=== PATIENT | female | born 1940 | race Caucasian/White ===

== ENCOUNTER 2017-07-27 08:50 | Day surgery (SDC) | payer MEDICARE, BC ==
[~2017-07-27 08:50] MED LIST: BUPIVACAINE HCL 0.75% INJ/PF (7.5 MG/1 ML) 10 ML SDV OD PRN; CHONDR SU A NA/HYALUR INTRAOC KIT (SURGICARE) ONE; KETOROLAC TROMETHAMINE 0.45% 4 DROP/0.4 ML DROPERETTE OD PRN; LIDOCAINE 1% INJ-PF (10 MG/ML) 30 ML SDV ONE; LIDOCAINE 4% INJ/PF (40 MG/ML) 5 ML AMPUL OD PRN; MIDAZOLAM 2 MG/2 ML INJ ONE; PHENYLEPHRINE/KETOROLAC 1%-0.3% 4 ML VIAL ONE
[2017-07-27] MEDS: TETRACAINE HCL 0.5% OPH SOLN 0.6 ML DROPERETTE OD PRN ×2 (09:14→09:42)
[2017-07-27] MEDS: BESIFLOXACIN HCL 0.6% OPH SUSP 5 ML BOTTLE OD PRN ×3 (09:15→10:48)
[2017-07-27] MEDS: TROPICAMIDE 1% OPH SOLN 3 ML OD PRN ×3 (09:15→09:40)
[2017-07-27] MEDS: CYCLOPENTOLATE 0.2%/PHENYLEPHRINE 1% OPH SOLN 2 ML OD PRN ×3 (09:15→09:40)
[2017-07-27] MEDS ORDERED: MIDAZOLAM 2 MG/2 ML INJ ONE (09:31)
[2017-07-27] MEDS ORDERED: FENTANYL CITRATE INJ/PF 100 MCG/2 ML AMPUL ONE (09:31)
--- NOTE | 2017-07-27 13:08 | [facility] OPERATIVE REPORT E ---
[facility] Operative Report NAME: CYNTHIA FARRAR AGE: 77Y DATE OF SURGERY: 07/27/2017 ROOM: PREOPERATIVE DIAGNOSES: 1. Cataract, right eye. 2. Glaucoma, right eye. POSTOPERATIVE DIAGNOSES: 1. Cataract, right eye. 2. Glaucoma, right eye. PROCEDURES PERFORMED: 1. Phacoemulsification with posterior chamber intraocular lens, right eye. 2. Insertion of iStent, right eye. SURGEON: MARK ARAIZA M.D. ANESTHESIA: Topical with MAC. DESCRIPTION OF PROCEDURE: The patient was brought to the operating room and topical anesthesia was administered. This consisted of instrument wipe pledgets soaked in a solution of 4% Xylocaine mixed with 0.75% Marcaine in a 1:1 ratio. A 2 x 1 cm pledget was placed in the superior fornix. A 1 x 1 cm pledget was placed in the inferior fornix. The eye was patched shut for 5 minutes. The patch and pledgets were removed. The eye was sterilely prepped and draped in the usual manner. Lid speculum was placed in the eye. The 4-0 black silk sutures were placed around the superior and the inferior rectus muscles to be used as traction. A sideport incision was placed at the 12 o'clock position and 0.3 mL of 1% non-preserved lidocaine was injected into the eye. A 2.4 mm keratome was used to create a clear corneal incision temporally. Additional intraocular lidocaine was placed. Viscoelastic was placed in the eye. An anterior capsulotomy was performed using the Utrata forceps in a capsulorhexis fashion. Hydrodissection was hydrodelineation were performed. Phacoemulsification was performed in udqzve-yzo-oseanbw technique. A total of 33 seconds of total phaco time was used. Following this, the I/A unit was used to remove residual cortex. Viscoelastic was injected into the capsular bag. Intraocular lens Model SN60WF, 22.5 diopters, serial number [id number] was placed in the capsular bag. The microscope was rotated 30 degrees as well as the patient's head was rotated 30 degrees away from the surgeon. A gonioprism was placed in the eye and the trabecular meshwork was visualized nasally. The iStent was opened and the iStent was placed uneventfully in the nasal trabecular meshwork. There was small amount of heme on placement of the iStent. The head was repositioned and the I/A unit was used to remove residual viscoelastic. The wound was seen to be watertight under high and low pressure, and no sutures were placed. The 4-0 black silk sutures and lid speculum were removed. The eye was shielded after Besivance drops were placed. The patient tolerated the procedure well and was sent to the recovery room in good condition. DICTATING PHYSICIAN: MARK ARAIZA M.D. [id number] PHY#: [id number] ID: [id number] JOB#: [id number] ACCT: [id number] cc:MARK ARAIZA M.D. >
--- NOTE | 2017-07-27 13:13 | [facility] DISCHARGE SUMMARY E ---
[facility] Discharge Summary NAME: CYNTHIA FARRAR AGE: 77Y ADMITTED: 07/27/2017 DISCHARGED: 07/27/2017 HOSPITAL COURSE: The patient is a 77-year-old lady who underwent cataract extraction with intraocular lens implant and insertion of iStent, right eye on 07/27/2017. She will be discharged to home. She was instructed to resume preoperative medications, including her glaucoma drops, to keep her eye shielded, to use Besivance, Durezol and Ilevro at 3:00 p.m. and 8:00 p.m., and to follow up in my office in 1 day. DICTATING PHYSICIAN: MARK ARAIZA M.D. [id number] PHY#: [id number] ID: [id number] JOB#: [id number] ACCT: [id number] cc:MARK ARAIZA M.D. >
== END 2017-07-27 11:50 | disposition home or self-care (01) ==
LOC: SC 08:50
PROVIDERS: ATTEND Ophthalmology
PROC: 089230Z Drainage of Right Anterior Chamber with Drainage Device, Percutaneous Approach (ICD-10-PCS; 2017-07-27)
PROC: 08RJ3JZ Replacement of Right Lens with Synthetic Substitute, Percutaneous Approach (ICD-10-PCS; principal; 2017-07-27 10:00)
DX: H25.813 Combined forms of age-related cataract, bilateral (principal); H40.1231 Low-tension glaucoma, bilateral, mild stage; M19.90 Unspecified osteoarthritis, unspecified site; Z88.2 Allergy status to sulfonamides; Z88.5 Allergy status to narcotic agent; Z79.899 Other long term (current) drug therapy
CPT/HCPCS: 0191T; 66984; 142; C1783; C9447; J2250; J3010; J3490; V2632

== ENCOUNTER 2017-08-24 10:29 | Day surgery (SDC) | payer MEDICARE, BC ==
[~2017-08-24 10:29] MED LIST changes: -BUPIVACAINE HCL 0.75% INJ/PF (7.5 MG/1 ML) 10 ML SDV OD PRN; +BUPIVACAINE HCL 0.75% INJ/PF (7.5 MG/1 ML) 10 ML SDV OS PRN; -KETOROLAC TROMETHAMINE 0.45% 4 DROP/0.4 ML DROPERETTE OD PRN; +KETOROLAC TROMETHAMINE 0.45% 4 DROP/0.4 ML DROPERETTE OS PRN; -LIDOCAINE 4% INJ/PF (40 MG/ML) 5 ML AMPUL OD PRN; +LIDOCAINE 4% INJ/PF (40 MG/ML) 5 ML AMPUL OS PRN; -MIDAZOLAM 2 MG/2 ML INJ ONE
[2017-08-24] MEDS: TROPICAMIDE 1% OPH SOLN 3 ML OS PRN ×3 (10:40→11:11)
[2017-08-24] MEDS: CYCLOPENTOLATE 0.2%/PHENYLEPHRINE 1% OPH SOLN 2 ML OS PRN ×3 (10:40→11:11)
[2017-08-24] MEDS: BESIFLOXACIN HCL 0.6% OPH SUSP 5 ML BOTTLE OS PRN ×3 (10:41→11:53)
[2017-08-24] MEDS: TETRACAINE HCL 0.5% OPH SOLN 0.6 ML DROPERETTE OS PRN ×2 (10:42→11:12)
[2017-08-24] MEDS ORDERED: MIDAZOLAM 2 MG/2 ML INJ ONE ×2 (10:44)
[2017-08-24] MEDS ORDERED: ONDANSETRON HCL INJ/PF 4 MG/2 ML SDV ONE (10:58)
[2017-08-24] MEDS ORDERED: HYALURONATE SODIUM SYRINGE 0.55 ML ONE (11:03)
[2017-08-24] MEDS ORDERED: KETOROLAC TROMETHAMINE 0.45% 4 DROP/0.4 ML DROPERETTE OS ONE (12:04)
--- NOTE | 2017-08-24 12:13 | [facility] DISCHARGE SUMMARY E ---
[facility] Discharge Summary NAME: CYNTHIA FARRAR AGE: 77Y ADMITTED: 08/24/2017 DISCHARGED: 08/24/2017 FINAL DIAGNOSIS: Cataract, left eye. HOSPITAL COURSE: The patient is a 77-year-old lady who underwent uneventful cataract extraction with intraocular lens implant, left eye, on 08/24/2017. She will be discharged to home. She was instructed to resume preoperative medications, to take Tylenol as needed for discomfort, to keep her eye shielded, to use Durezol, Ketorolac and Vigamox at 3 p.m. and 8 p.m., and to follow up in my office in 1 day. DICTATING PHYSICIAN: MARK ARAIZA M.D. [id number] PHY#: [id number] ID: [id number] JOB#: [id number] ACCT: [id number] cc:MARK ARAIZA M.D. >
--- NOTE | 2017-08-24 12:13 | [facility] OPERATIVE REPORT E ---
[facility] Operative Report NAME: CYNTHIA FARRAR AGE: 77Y DATE OF SURGERY: 08/24/2017 ROOM: PREOPERATIVE DIAGNOSIS: Cataract, left eye. POSTOPERATIVE DIAGNOSIS: Cataract, left eye. PROCEDURE PERFORMED: Phacoemulsification with posterior chamber intraocular lens implant, left eye. SURGEON: MARK ARAIZA M.D. ANESTHESIA: Topical with MAC. INDICATIONS FOR SURGERY: Anisotropy following cataract surgery in the right eye. Glare with driving. Best corrected visual acuity 20/25. PROCEDURE: The patient was brought to the operating room and topical anesthesia was administered. This consisted of instrument wipe pledgets soaked in a solution of 2% Xylocaine mixed with 0.75% Marcaine in a 1:1 ratio. A 2 x 1 cm pledget was placed in the superior fornix. A 1 x 1 cm pledget was placed in the inferior fornix. The eye was patched shut for 5 minutes. The patch and pledget were removed. The eye was sterilely prepped and draped in the usual manner. Lid speculum was placed in the eye and 4-0 black silk sutures were placed around the superior and the inferior rectus muscles to be used as traction. A sharp point blade was used to create a paracentesis site at the 6 o'clock position. A 2.4 mm keratome was used to create a clear corneal incision temporally. Then, 0.5 mL of nonpreserved lidocaine were injected into the eye. Viscoelastic was injected into the eye. An anterior capsulotomy was performed using Utrata forceps in a capsulorrhexis fashion. Hydrodissection and hydrodelineation were performed. Phacoemulsification was performed in a xupzox-jov-jhirmrt technique. A total of 43 seconds total phaco time was used. Following this, the I/A unit was used to remove residual cortex. Viscoelastic was injected into the capsular bag. Intraocular lens model SN60WF, 22.0 diopters, serial number [id number], was injected into the capsular bag. Additional Provisc was placed and an attempt for preparation of possible iStent. The patient had a very small lid fissure and despite maximizing the lid speculum the gonioprism did not fit easily on the eye; therefore, it was decided not to place the iStent. The I/A unit was used to remove residual viscoelastic. The wound was seen to be watertight under high and low pressure, and no sutures were placed. The 4-0 black silk sutures and lid speculum were removed. The eye was shielded after Besivance drops were placed. The patient tolerated the procedure well and was sent to recovery room in good condition. DICTATING PHYSICIAN: MARK ARAIZA M.D. [id number] PHY#: [id number] ID: [id number] JOB#: [id number] ACCT: [id number] cc:MARK ARAIZA M.D. >
== END 2017-08-24 13:00 | disposition home or self-care (01) ==
LOC: SC 10:29
PROVIDERS: ATTEND Ophthalmology
PROC: 08RK3JZ Replacement of Left Lens with Synthetic Substitute, Percutaneous Approach (ICD-10-PCS; principal; 2017-08-24 11:30)
DX: H25.812 Combined forms of age-related cataract, left eye (principal); H40.1231 Low-tension glaucoma, bilateral, mild stage; Z96.1 Presence of intraocular lens; K21.9 Gastro-esophageal reflux disease without esophagitis; Z79.899 Other long term (current) drug therapy; Z88.5 Allergy status to narcotic agent; Z88.2 Allergy status to sulfonamides
CPT/HCPCS: 66984; V2632; J2250; J3490 ×4; A9270; J2405; C9447; 142

== ENCOUNTER 2018-01-19 10:59 | Day surgery (SDC) | payer MEDICARE, BC ==
[2018-01-14 11:37] LABS: ABSOLUTE BASOPHILS # (AUTO) 0.1 10^3/uL (0.0-0.2); ABSOLUTE EOSINOPHILS # (AUTO) 0.3 10^3/uL (0.0-0.6); ABSOLUTE MONOCYTES (AUTO) 0.6 10^3/uL (0.1-1.4); BASOPHILS % (AUTO) 1.2 % (0-2); EOSINOPHILS % (AUTO) 4.3 % (0-6); HEMATOCRIT 36.7 % (36.0-47.0); HEMOGLOBIN 12.4 g/dL (12.0-15.5); LYMPHOCYTES % (AUTO) 42.8 % (13-45); MEAN CORPUSCULAR HEMOGLOBIN 31.6 pg (27.0-33.4); MEAN CORPUSCULAR HGB CONC 33.7 g/dL (32.0-36.0); MEAN CORPUSCULAR VOLUME 94 fl (80-97); MONOCYTES % (AUTO) 8.8 % (3-13); PLATELET COUNT 240 10^3/uL (150-450); RED BLOOD COUNT 3.91 10^6/uL (3.72-5.28); RED CELL DISTRIBUTION WIDTH 13.4 % (11.5-14.0); SEGMENTED NEUTROPHILS % (AUTO) 42.9 % (42-78); TOTAL CELLS COUNTED % (AUTO) 100 %; WHITE BLOOD COUNT 6.9 10^3/uL (4.0-10.5)
[2018-01-14 11:39] LABS: APPEARANCE,URINE CLEAR; BILIRUBIN,URINE NEGATIVE (NEGATIVE); COLOR,URINE YELLOW; GLUCOSE, URINE NEGATIVE (NEGATIVE); KETONES,URINE NEGATIVE (NEGATIVE); LEUKOCYTE ESTERASE,URINE SMALL (NEGATIVE); NITRITE,URINE NEGATIVE (NEGATIVE); PROTEIN,URINE NEGATIVE (NEGATIVE); URINE SPECIFIC GRAVITY 1.009; UROBILINOGEN,URINE NEGATIVE mg/dL (<2.0)
[2018-01-14 11:40] LABS: INTERNATIONAL RATION (INR) 0.92; PROTHROMBIN TIME 12.8 SEC (11.4-15.4)
[2018-01-14 11:41] LABS: PARTIAL THROMBOPLASTIN TIME 28.6 SEC (23.5-35.8)
[2018-01-14 11:59] LABS: ANION GAP 15 (5-19); BLOOD UREA NITROGEN 17 mg/dL (7-20); CALCIUM 9.8 mg/dL (8.4-10.2); CARBON DIOXIDE 26 mmol/L (22-30); CHLORIDE 103 mmol/L (98-107); GLUCOSE 90 mg/dL (75-110); POTASSIUM 4.7 mmol/L (3.6-5.0); SODIUM 143.9 mmol/L (137-145)
--- NOTE | 2018-01-14 21:15 | EKG REPORT ---
SEVERITY:- ABNORMAL ECG - SINUS RHYTHM ABNORMAL T, CONSIDER ISCHEMIA, INFERIOR LEADS : Confirmed by: Jackie Vidal 14-Jan-2018 21:14:14
[~2018-01-19 10:59] MED LIST changes: -BUPIVACAINE HCL 0.75% INJ/PF (7.5 MG/1 ML) 10 ML SDV OS PRN; +CEFAZOLIN 1 GM/D5W RTU 1 GM/50 ML RTUPB IV PRN; -CHONDR SU A NA/HYALUR INTRAOC KIT (SURGICARE) ONE; -KETOROLAC TROMETHAMINE 0.45% 4 DROP/0.4 ML DROPERETTE OS PRN; +LACTATED RINGERS 1000 ML IV PRN; +LIDOCAINE 0.5% INJ-PF (5 MG/ML) 50 ML SDV SUBCUT PRN; -LIDOCAINE 1% INJ-PF (10 MG/ML) 30 ML SDV ONE; -LIDOCAINE 4% INJ/PF (40 MG/ML) 5 ML AMPUL OS PRN; -PHENYLEPHRINE/KETOROLAC 1%-0.3% 4 ML VIAL ONE
[2018-01-19] MEDS ORDERED: MIDAZOLAM 2 MG/2 ML INJ ONE (12:00)
[2018-01-19] MEDS ORDERED: FENTANYL CITRATE INJ/PF 100 MCG/2 ML AMPUL ONE (12:00)
[2018-01-19] MEDS ORDERED: PROPOFOL INJ 200 MG/20 ML VIAL IV ONE (12:01)
[2018-01-19] MEDS ORDERED: LIDOCAINE 1% INJ-PF (10 MG/ML) 30 ML SDV ONE (12:35)
[2018-01-19] MEDS ORDERED: BUPIVACAINE HCL 0.25% /EPINEPHRINE INJ/PF 30 ML SDV ONE (12:36)
[2018-01-19] MEDS ORDERED: PROMETHAZINE HCL INJ 25 MG/1 ML VIAL IV PRN ×2 (13:16)
[2018-01-19] MEDS ORDERED: MEPERIDINE HCL/PF INJ 25 MG/1 ML DISP.SYRIN IV PRN (13:16)
[2018-01-19] MEDS ORDERED: OXYCODONE-ACETAMINOPHEN 5-325 MG TABLET PO PRN ×2 (13:16)
[2018-01-19] MEDS ORDERED: FENTANYL CITRATE INJ/PF 100 MCG/2 ML AMPUL IV PRN ×3 (13:16)
[2018-01-19] MEDS ORDERED: DIPHENHYDRAMINE HCL 50 MG/ML VIAL IV PRN (13:16)
[2018-01-19] MEDS ORDERED: CEFAZOLIN INJ 1 GM VIAL ONE (14:34)
[2018-01-19] MEDS ORDERED: HYDROCODONE/ACETAMINOPHEN 10-325 MG TABLET PO PRN (15:00)
--- NOTE | 2018-01-19 16:04 | RADIOLOGY REPORT (SQ) ---
EXAM DESCRIPTION: NO CHG FLUORO; L SPINE 2 VIEWS COMPLETED DATE/TIME: 01/19/2018 3:03 pm REASON FOR STUDY: MINIMALLY INVASIVE LUMBAR DISKECTOMY ASST WITH FLUORO IN OR M48.062 SPINAL STENOS IS, LUMBAR REGION WITH NEUROGENIC KATHY Z79.01 RETIREMENT (CURRENT) USE OF ANTICOAGULANTS COMPARISON: None. FLUOROSCOPY TIME: 9.5 minutes 13 Images saved to PACS. TECHNIQUE: Intra-operative images acquired during surgical procedure to evaluate progress. NUMBER OF IMAGES: 13 LIMITATIONS: None. FINDINGS: Selected images from instrumentation in the upper lumbar spine. Epidural and intrathecal contrast. IMPRESSION: IMAGE(S) OBTAINED DURING PROCEDURE. COMMENT: Quality ID 145: Final reports for procedures using fluoroscopy that document radiation exp osure indices, or exposure time and number of fluorographic images (if radiation exposure indices are not available) Please consult full operative report of the attending physician for description of the procedure. TECHNICAL DOCUMENTATION: JOB ID: [id number] [employer]- All Rights Reserved Reading location - IP/workstation name: [email or web address]
--- NOTE | 2018-01-19 16:04 | RADIOLOGY REPORT (SQ) ---
EXAM DESCRIPTION: NO CHG FLUORO; L SPINE 2 VIEWS COMPLETED DATE/TIME: 01/19/2018 3:03 pm REASON FOR STUDY: MINIMALLY INVASIVE LUMBAR DISKECTOMY ASST WITH FLUORO IN OR M48.062 SPINAL STENOS IS, LUMBAR REGION WITH NEUROGENIC KATHY Z79.01 CORRECTION (CURRENT) USE OF ANTICOAGULANTS COMPARISON: None. FLUOROSCOPY TIME: 9.5 minutes 13 Images saved to PACS. TECHNIQUE: Intra-operative images acquired during surgical procedure to evaluate progress. NUMBER OF IMAGES: 13 LIMITATIONS: None. FINDINGS: Selected images from instrumentation in the upper lumbar spine. Epidural and intrathecal contrast. IMPRESSION: IMAGE(S) OBTAINED DURING PROCEDURE. COMMENT: Quality ID 145: Final reports for procedures using fluoroscopy that document radiation exp osure indices, or exposure time and number of fluorographic images (if radiation exposure indices are not available) Please consult full operative report of the attending physician for description of the procedure. TECHNICAL DOCUMENTATION: JOB ID: [id number] [employer]- All Rights Reserved Reading location - IP/workstation name: [email or web address]
[2018-01-19 16:53] VITALS: BP 159/76
--- NOTE | 2018-01-20 10:47 | OPERATIVE REPORT E ---
Operative Report NAME: CYNTHIA FARRAR : 1940 AGE: 77Y DATE OF SURGERY: ROOM: PREOPERATIVE DIAGNOSIS: LUMBAR SPINAL STENOSIS WITH NEUROGENIC CLAUDICATION. POSTOPERATIVE DIAGNOSIS: LUMBAR SPINAL STENOSIS WITH NEUROGENIC CLAUDICATION. OPERATION: Minimally invasive lumbar decompression L2-L3 with epidural controlled steroid injection. SURGEON: JUDY ALEJANDRE M.D. CRM DEVELOPER: Dr. Antonio Ratliff ANESTHESIA: MAC. COMPLICATIONS: None. PROCEDURE: After obtaining informed consent, advising the patient of the risks and benefits including serious neurological injury, bleeding, infection, paralysis, aggravation of pain, infection, , allergic reaction, she was taken to the operating room and placed comfortably in the prone position. Monitors were applied per Anesthesia. She was assessed visually and verbally for comfort. She was then prepped with chlorhexidine followed by a sterile drape. Fluoroscopy was used to evaluate the spine along with a prior MRI imaging from 06/16/2017 at [facility], with a known spinal stenosis at L2-L3. The L2-L3 target space was identified. Using an epidural needle and intermittent fluoroscopy, the needle was advanced to the target epidural space. An epidurogram was performed after loss of resistance at 6 cm with appropriate contrast spread and minimal inferior migration. The landmarks were identified and suitable track was determined for placement of the MILD instrumentation. Beginning on the left side, a small incision was made after local anesthesia of 1% lidocaine was applied. This was repeated on the right side at the suspected entry level marketing representative. The MILD instrumentation trocar was then advanced through the small incision down to the lamina of the L2-L3 level on the left. Multiple x-ray views were taken particularly oblique and AP to ensure satisfactory location in the midline and depth. A small amount of additional local anesthetic was instilled through the trocar using a spinal needle. A bone rongeur was then utilized from the lamina and ligament at the level on the left in the superior inferior regions. A tissue sculptor was utilized to remove additional tissue. Improvement with the contrast spread was noted with improved migration. The procedure was then repeated on the right side as described. Again, additional improvement in the was noted. There was felt to be satisfactory opening of the epidural space at the L2 level resolving some of the spinal stenosis. Through the epidural needle, 80 mg of Kenalog was then inserted and injected. All instrumentation was then removed. The region was cleansed, Steri-Strips were placed followed by sterile dressings. The patient was then taken to the PACU for further postoperative care and monitoring. DICTATING PHYSICIAN: JUDY ALEJANDRE M.D. [id number] PHY#: [id number] ID: [id number] JOB#: [id number] ACCT: [id number] cc:JUDY ALEJANDRE M.D. >
== END 2018-01-19 16:20 | disposition home or self-care (01) ==
LOC: OROUT 10:59
PROVIDERS: ATTEND Student in an Organized Health Care Education/Training Program
DX: M48.062 Spinal stenosis, lumbar region with neurogenic claudication (principal); M96.1 Postlaminectomy syndrome, not elsewhere classified; M51.36 Other intervertebral disc degeneration, lumbar region; M54.16 Radiculopathy, lumbar region; G89.4 Chronic pain syndrome; J45.909 Unspecified asthma, uncomplicated; M19.90 Unspecified osteoarthritis, unspecified site; Z79.01 Long term (current) use of anticoagulants; Z79.899 Other long term (current) drug therapy; Z79.82 Long term (current) use of aspirin; Z87.891 Personal history of nicotine dependence; Z88.2 Allergy status to sulfonamides; Z79.891 Long term (current) use of opiate analgesic; Z00.6 Encounter for examination for normal comparison and control in clinical research program
CPT/HCPCS: 0275T; 93005; 36415; 85025; 85610; 85730; 80048; 81001; 72100; 93010; Q9966; J2250; J3490 ×2; J0690 ×2; J3010; J2704; 630

== ENCOUNTER 2018-04-04 11:21 | Emergency (ER) | payer MEDICARE, BC ==
[2018-04-04] MEDS ORDERED: NORMAL SALINE 1000 ML 1,000 ML IV ONE (11:34)
--- NOTE | 2018-04-04 11:44 | ER Document Report ---
ED General - General Chief Complaint: Syncope Stated Complaint: SYNCOPE Time Seen by Provider: 04/04/18 11:33 Mode of Arrival: Medic Information source: Patient, Relative, Emergency Med Personnel Notes: 78-year-old female presents with complaints of sudden weakness. Patient denies any fever chills denies any chest pain shortness breath difficulty breathing. Patient notes that for the past month she has been dieting eating 600 damari in 1 week then 112 100, she just started eating regular food again, patient notes she did this because she wanted to lose weight, patient also notes that yesterday she was outdoors because it was beautiful out and she thinks she overdid it. EMS noted patient was quite hypotensive upon arrival blood pressure was 70s over 40s patient was given 500 cc bolus and notes symptoms have improved significantly. Patient notes a history of spinal stenosis intermittent paresthesias of extremities and states that this is chronic and had recent surgery 2 months ago denies any weakness outside of her baseline TRAVEL OUTSIDE OF THE [place] IN LAST 30 DAYS: No - HPI Onset: Just prior to arrival Onset/Duration: Sudden Quality of pain: No pain Severity: Mild Pain Level: Denies Associated symptoms: Weakness Exacerbated by: Denies Relieved by: Other - iv fluids Similar symptoms previously: No Recently seen / treated by doctor: No - Related Data Allergies/Adverse Reactions: morphine Allergy (Verified 01/19/18 12:21) Disorientation Sulfa (Sulfonamide Antibiotics) Allergy (Verified 01/19/18 12:21) Generalized rash Past Medical History - Social History Smoking Status: Never Smoker Cigarette use (# per day): No Chew tobacco use (# tins/day): No Smoking Education Provided: No Frequency of alcohol use: None Drug Abuse: None Family History: Reviewed & Not Pertinent Patient has suicidal ideation: No Patient has homicidal ideation: No - Past Medical History Cardiac Medical History: Reports: Hx Hypertension - ON MEDICATION Denies: Hx Coronary Artery Disease, Hx Heart Attack Pulmonary Medical History: Denies: Hx Asthma - HYPERVENTILATE EASILY WITH ANXIETY 6 MONTHS AGO, Hx Bronchitis, Hx COPD, Hx Pneumonia Neurological Medical History: Denies: Hx Cerebrovascular Accident, Hx Seizures Renal/ Medical History: Denies: Hx Peritoneal Dialysis GI Medical History: Reports: Hx Ulcer - 50 YEARS AGO. Denies: Hx Hepatitis, Hx Hiatal Hernia Musculoskeltal Medical History: Reports Hx Arthritis Infectious Medical History: Denies: Hx Hepatitis Past Surgical History: Reports: Hx Genitourinary Surgery - bladder x3., Hx Hysterectomy, Hx Orthopedic Surgery - Lumbar spinal decompression surgery. Denies: Hx Mastectomy, Hx Open Heart Surgery, Hx Pacemaker - Immunizations Hx Diphtheria, Pertussis, Tetanus Vaccination: Yes Hx Pneumococcal Vaccination: 09/27/16 Review of Systems - Review of Systems Notes: REVIEW OF SYSTEMS: CONSTITUTIONAL : Denies fever, chills, or sweats. Denies recent illness. EENT: Denies eye, ear, throat, or mouth pain or symptoms. Denies nasal or sinus congestion or discharge. Denies throat, tongue, or mouth swelling or difficulty swallowing. CARDIOVASCULAR: Denies chest pain. Denies palpitations or racing or irregular heart beat. Denies ankle edema. RESPIRATORY: Denies cough, cold, or chest congestion. Denies shortness of breath, difficulty breathing, or wheezing. GASTROINTESTINAL: Denies abdominal pain or distention. Denies nausea, vomiting , or diarrhea. Denies blood in vomitus, stools, or per rectum. Denies black, tarry stools. Denies constipation. GENITOURINARY: Denies difficulty urinating, painful urination, burning, frequency, blood in urine, or discharge. FEMALE GENITOURINARY: Denies vaginal bleeding, heavy or abnormal periods, irregular periods. Denies vaginal discharge or odor. MUSCULOSKELETAL: Denies back or neck pain or stiffness. Denies joint pain or swelling. SKIN: Denies rash, lesions or sores. HEMATOLOGIC : Denies easy bruising or bleeding. LYMPHATIC: Denies swollen, enlarged glands. NEUROLOGICAL: Admits to lower extremity weakness PSYCHIATRIC: Denies anxiety or stress. Denies depression, suicidal ideation, or homicidal ideation. ALL OTHER SYSTEMS REVIEWED AND NEGATIVE. PHYSICAL EXAMINATION: GENERAL: Well-appearing, well-nourished and in no acute distress. HEAD: Atraumatic, normocephalic. EYES: Pupils equal round and reactive to light, extraocular movements intact, conjunctiva are normal. ENT: Nares patent, oropharynx clear without exudates. Moist mucous membranes. NECK: Normal range of motion, supple without lymphadenopathy LUNGS: Breath sounds clear to auscultation bilaterally and equal. No wheezes rales or rhonchi. HEART: Regular rate and rhythm without murmurs ABDOMEN: Soft, nontender, nondistended abdomen. No guarding, no rebound. No masses appreciated. Female : deferred Musculoskeletal: Normal range of motion, no pitting or edema. No cyanosis. NEUROLOGICAL: Cranial nerves grossly intact. Normal speech, normal gait. Normal sensory, motor exams PSYCH: Normal mood, normal affect. SKIN: Warm, Dry, normal turgor, no rashes or lesions noted. Dictation was performed using [employer] voice recognition software Physical Exam - Vital signs Vitals: Resp Pulse Ox 10 L 77 L 04/04/18 11:30 04/04/18 11:30 Course - Re-evaluation Re-evalutation: 04/04/18 11:58 Patient notes improvement of symptoms after 500 cc bolus, her blood pressures improved significantly, she overall appears to have been dehydrated I do not expect any life-threatening issues however lab work is pending 04/04/18 13:17 Patient's presentation has improved, lab work was benign she is overall stable for discharge After performing a Medical Screening Examination, I estimate there is LOW risk for INTRACRANIAL HEMORRHAGE, ISCHEMIC CVA, MALIGNANT DYSRHYTHMIA, ACUTE CORONARY SYNDROME, MENINGITIS, PULMONARY EMBOLISM, or SEPSIS thus I consider the discharge disposition reasonable. I have reevaluated this patient multiple times and no significant life threatening changes are noted. The patient and I have discussed the diagnosis and risks, and we agree with discharging home with close follow-up with the understanding that symptoms and presentations can change. We also discussed returning to the Emergency Department immediately if new or worsening symptoms occur. We have discussed the symptoms which are most concerning (e.g., changing or worsening pain, weakness, vomiting, fever) that necessitate immediate return. - Vital Signs Vital signs: Temp Pulse Resp BP Pulse Ox 68 29 H 108/87 H 94 04/04/18 11:48 04/04/18 12:01 04/04/18 12:01 04/04/18 12:01 - Laboratory Result Diagrams: 04/04/18 11:02 04/04/18 11:02 Laboratory results interpreted by me: 04/04/18 04/04/18 11:02 11:02 RBC 3.67 L Hgb 11.9 L Hct 34.2 L Seg Neutrophils % 40.8 L Eosinophils % 6.4 H Chloride 108 H AST 41 H Discharge - Discharge Clinical Impression: Leg weakness, bilateral Hypotension Qualifiers: Hypotension type: unspecified hypotension type Qualified Code(s): I95.9 - Hypotension, unspecified Condition: Stable Disposition: HOME, SELF-CARE Instructions: Hypotension ([facility]) Referrals: INNA DOWNEY FNP [Primary Care Provider] - Follow up tomorrow
[2018-04-04 12:13] LABS: ABSOLUTE BASOPHILS # (AUTO) 0.1 10^3/uL (0.0-0.2); ABSOLUTE EOSINOPHILS # (AUTO) 0.5 10^3/uL (0.0-0.6); ABSOLUTE LYMPHOCYTES (AUTO) 3.3 10^3/uL (0.5-4.7); ABSOLUTE MONOCYTES (AUTO) 0.7 10^3/uL (0.1-1.4); ABSOLUTE NEUT (AUTO) 3.2 10^3/uL (1.7-8.2); BASOPHILS % (AUTO) 1.3 % (0-2); EOSINOPHILS % (AUTO) 6.4 % (0-6); HEMATOCRIT 34.2 % (36.0-47.0); HEMOGLOBIN 11.9 g/dL (12.0-15.5); LYMPHOCYTES % (AUTO) 42.1 % (13-45); MEAN CORPUSCULAR HEMOGLOBIN 32.3 pg (27.0-33.4); MEAN CORPUSCULAR HGB CONC 34.7 g/dL (32.0-36.0); MEAN CORPUSCULAR VOLUME 93 fl (80-97); MONOCYTES % (AUTO) 9.4 % (3-13); PLATELET COUNT 223 10^3/uL (150-450); RED BLOOD COUNT 3.67 10^6/uL (3.72-5.28); RED CELL DISTRIBUTION WIDTH 13.6 % (11.5-14.0); SEGMENTED NEUTROPHILS % (AUTO) 40.8 % (42-78); TOTAL CELLS COUNTED % (AUTO) 100 %; WHITE BLOOD COUNT 7.8 10^3/uL (4.0-10.5)
[2018-04-04 12:16] LABS: ALANINE AMINOTRANSFERASE 26 U/L (9-52); ALBUMIN 3.6 g/dL (3.5-5.0); ALKALINE PHOSPHATASE 40 U/L (38-126); ANION GAP 10 (5-19); ASPARTATE AMINO TRANSFERASE 41 U/L (14-36); BILIRUBIN,DIRECT 0.3 mg/dL (0.0-0.4); BILIRUBIN,TOTAL 0.7 mg/dL (0.2-1.3); BLOOD UREA NITROGEN 20 mg/dL (7-20); CALCIUM 8.5 mg/dL (8.4-10.2); CARBON DIOXIDE 24 mmol/L (22-30); CHLORIDE 108 mmol/L (98-107); CREATINE KINASE 64 U/L (30-135); GLUCOSE 85 mg/dL (75-110); POTASSIUM 4.4 mmol/L (3.6-5.0); SODIUM 142.3 mmol/L (137-145); TOTAL PROTEIN 6.4 g/dL (6.3-8.2)
[2018-04-04 12:28] LABS: CREATINE KINASE MB < 0.22 ng/mL (<4.55); TROPONIN I < 0.012 ng/mL
[2018-04-04 13:07] LABS: APPEARANCE,URINE SLIGHTLY-CLOUDY; BILIRUBIN,URINE NEGATIVE (NEGATIVE); COLOR,URINE YELLOW; GLUCOSE, URINE NEGATIVE (NEGATIVE); KETONES,URINE NEGATIVE (NEGATIVE); LEUKOCYTE ESTERASE,URINE NEGATIVE (NEGATIVE); NITRITE,URINE NEGATIVE (NEGATIVE); PROTEIN,URINE NEGATIVE (NEGATIVE); URINE SPECIFIC GRAVITY 1.011; UROBILINOGEN,URINE NEGATIVE mg/dL (<2.0)
[2018-04-04 13:31] VITALS: BP 125/85
--- NOTE | 2018-04-04 20:20 | EKG REPORT ---
SEVERITY:- NORMAL ECG - SINUS RHYTHM : Confirmed by: Dana Raza MD 04-Apr-2018 20:20:10
== END 2018-04-04 13:49 | disposition home or self-care (01) ==
LOC: ER 11:21
DX: M62.81 Muscle weakness (generalized) (principal); I95.9 Hypotension, unspecified; Z98.890 Other specified postprocedural states; I10 Essential (primary) hypertension; Z79.899 Other long term (current) drug therapy
CPT/HCPCS: 93005; 99284; 96360; 36415; 82553; 82550; 85025; 80053; 81001; 84484; 93010; J7030